=== PATIENT | female | born 1995 | race Hispanic/Latino ===

== ENCOUNTER 2019-03-29 19:20 | Emergency (ER) | payer MEDICAID, OTHER ==
[2019-03-29] MEDS ORDERED: Codeine/Promethazine 10-6.25 MG/5 ML Syrup 5 ML UD Cup PO ONE (19:21)
[2019-03-29] MEDS ORDERED: Take Home: Codeine/Promethazine 10-6.25 MG/5 ML Syrup 5 ML, 2 Cup Pack PO ONE (20:03)
--- NOTE | 2019-03-29 20:07 | EDM.PDOC ---
ED HPI GENERAL MEDICAL PROBLEM - General Chief Complaint: Gastrointestinal Problem Stated Complaint: cough, sinus, nausea Time Seen by Provider: 03/29/19 19:40 Source of Information: Reports: Patient History Limitations: Reports: No Limitations - History of Present Illness INITIAL COMMENTS - FREE TEXT/NARRATIVE: Patient presents for complaints of cough, sinus congestion and fatigue. States has been having trouble sleeping due to cough. She is 10 weeks . has been uneventful. Denies nausea or vomiting. Has headache. No fevers. Has not taken any meds for her symptoms due to . Onset: Gradual Duration: Day(s): Location: Reports: Chest Quality: Reports: Ache Severity: Mild Improves with: Reports: Rest Worsens with: Reports: None Associated Symptoms: Reports: Cough, cough w sputum, Headaches, Shortness of Breath, Weakness. 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 Denies: Fever, Decreased Appetite HEENT: Reports: Sinus Problem. Denies: Ear Pain, Throat Pain Respiratory: Reports: Shortness of Breath, Wheezing, Cough. Denies: Sputum Cardiovascular: Denies: Chest Pain, Edema, Lightheadedness Endocrine: Reports: Fatigue GI/Abdominal: Denies: Abdominal Pain, Nausea, Vomiting : Reports: No Symptoms Musculoskeletal: Reports: No Symptoms Skin: Reports: No Symptoms Neurological: Reports: No Symptoms Psychiatric: Reports: No Symptoms ED EXAM, ENT - Physical Exam Exam: See Below Exam Limited By: No Limitations General Appearance: Alert, WD/WN, No Apparent Distress Ears: Normal External Exam, Normal TMs Nose: Normal Inspection, Clear Rhinorrhea Mouth/Throat: Normal Inspection, Normal Oropharynx Head: Normocephalic Neck: Normal Inspection, Supple, Non-Tender Respiratory/Chest: No Respiratory Distress, Lungs Clear, Normal Breath Sounds Cardiovascular: Regular Rate, Rhythm GI/Abdominal: Normal Bowel Sounds, Soft, Non-Tender Extremities: Normal Inspection, No Pedal Edema Neurological: Alert, Oriented Skin: Warm, Dry Course - Vital Signs Last Recorded V/S: Last Vital Signs Temp 99.7 F 03/29/19 19:28 Pulse 111 H 03/29/19 19:28 Resp 20 03/29/19 19:28 BP 111/69 03/29/19 19:28 Pulse Ox 95 03/29/19 19:28 - Orders/Labs/Meds Meds: Medications Discontinued Medications Generic Name Dose Route Start Last Admin Trade Name Freq PRN Reason Stop Dose Admin Promethazine HCl/Codeine 2 packet 03/29/19 20:03 03/29/19 20:13 Take Home: Codeine/Prometh 10-6.25 Mg, 2 Pack PO 03/29/19 20:04 2 packet ONETIME ONE Administration Departure - Departure Time of Disposition: 20:05 Disposition: Home, Self-Care 01 Condition: Good Clinical Impression: Viral URI with cough - Discharge Information *PRESCRIPTION DRUG MONITORING PROGRAM REVIEWED*: No *COPY OF PRESCRIPTION DRUG MONITORING REPORT IN PATIENT TRUONG: No Referrals: PCP,None [Primary Care Provider] - Forms: ED Department Discharge Additional Instructions: 1. Push fluids 2. Tylenol for discomfort 3. May take Sudafed as a decongestant 4. Prometh with codeine 1-2 tsp as needed for cough 5. Follow up with primary care provider as needed for persisting concerns.
== END 2019-03-29 20:14 | disposition home or self-care (01) ==
LOC: CC.ED 19:20
DX: J06.9 Acute upper respiratory infection, unspecified (principal); F32.9 Major depressive disorder, single episode, unspecified; Z91.040 Latex allergy status; Z79.899 Other long term (current) drug therapy
CPT/HCPCS: 99282; A9270-GY